=== PATIENT | female | born 1980 | race Caucasian/White ===

== ENCOUNTER 2017-02-26 08:43 | Observation (INO) ==
[2017-02-26] MEDS ORDERED: 0.9 % Sodium Chloride 1,000 ML IVC ONE ×2 (09:04→09:59)
[2017-02-26] MEDS ORDERED: Ondansetron 4 MG/2 ML VIAL IVP ONE (09:05)
[2017-02-26] MEDS ORDERED: Pantoprazole 40 MG VIAL IVP ONE (09:05)
[2017-02-26] MEDS ORDERED: *HR* Promethazine 25 MG/ML VIAL IVP ONE (09:09)
--- NOTE | 2017-02-26 09:09 | Emergency Department Note ---
Disposition Clinical Impression: Acute pancreatitis Qualifiers: Pancreatitis type: unspecified pancreatitis type Acute pancreatitis complication: unspecified Qualified Code(s): K85.90 - Acute pancreatitis without necrosis or infection, unspecified UTI (urinary tract infection) Qualifiers: Urinary tract infection type: site unspecified Hematuria presence: with hematuria Qualified Code(s): N39.0 - Urinary tract infection, site not specified Disposition: Admitted As Inpatient Condition: Fair Time of Disposition: 11:59 Abdominal Pain HPI - General Chief Complaint: ED Abdominal Pain Stated Complaint: pancreatitis Time Seen by Provider: 02/26/17 08:56 Source: patient Nursing Notes Reviewed: Yes Vital Signs Reviewed: Yes - History of Present Illness HPI Narrative: The patient is a 37-year-old female with the past medical history of pancreatitis who presents with worsening of her acute pancreatitis. The patient states that she was diagnosed with Acute pancreatitis and UTI yesterday at [facility] ER in [place], [place] and was sent home with nausea medications, antibiotics, and Vicodin. The patient states that her epigastric pain worsened last night and she couldn't sleep. She describes the epigastric pain as constant and sharp that radiates straight to her back and around her LUQ that is worse with moving around. She states that nothing helps the pain, including the Vicodin. She admits associated nausea and vomiting but denies fevers and chills. She denies any headache, vision changes, chest pain, shortness of breath, difficulty breathing, blood in her stool, difficulty urinating, blood in her urine, numbness and tingling, and any focal neurological deficits. Pain Scale: 10 - Related Data Home Medications Medication Instructions Recorded Confirmed Insulin ASPART [Novolog Flexpen] 2 - 10 unit SQ TIDWM 08/06/15 02/26/17 Diclofenac Sodium [Voltaren] 75 mg PO BID 02/26/17 02/26/17 Ibuprofen [Motrin] 800 mg PO Q8HR PRN 02/26/17 02/26/17 Insulin Degludec [Tresiba 30 unit SQ DAILY 02/26/17 02/26/17 Flextouch U-100] Levothyroxine [Synthroid] 175 mcg PO 0630 02/26/17 02/26/17 Norethindrone [Arlin] 0.35 mg PO DAILY 02/26/17 02/26/17 Allergies Allergy/AdvReac Type Severity Reaction Status Date / Time acetaminophen Allergy Hives Verified 02/26/17 08:45 [From Tylenol-Codeine] Amoxicillin Allergy Hives Verified 02/26/17 08:45 codeine Allergy Hives Verified 02/26/17 08:45 [From Tylenol-Codeine] Penicillins [PCN] Allergy Hives Verified 02/26/17 08:45 tramadol [From Ultram] Allergy Rash Verified 02/26/17 08:45 Review of Systems: Constitutional: No fever Vision: No blurred vision ENT: No rhinorrhea Respiratory: No cough or SOB. Cardio: No chest pain or palpitations. Allergic: No allergies : No blood in urine GI: Admits epigastric pain that radiates to the back and across her LUQ. Admits nausea and vomiting. Denies any hemaemesis. No blood in stool Hematologic: No bruising Dermatologic: No skin rash Musculoskeletal: No pain in the extremities Neuro: No numbness of the extremities All systems ED: reviewed and negative except as stated. 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 NOSE: The nose is normal in appearance without rhinorrhea LUNGS: CTAB, no wheezing CV: RRR without murmur, rub, gallop ABD: Epigastric tender to palpation. Non-distended, soft, without rigidity, rebound or guarding BACK: Visual inspection of the back with no ecchymosis, bruises, or bleeding. There is no pain with palpation musculature low back. No midline cervical/ thoracic/lumbar sacral tenderness to palpation NEURO: Strength 5/5 for flexion and extension bilateral lower extremities, sensation grossly intact bilateral lower extremities. No evidence of urinary incontinence SKIN: Normal for age and race; warm and dry; no apparent lesions, bruising or rashes - General Limitations: no limitations General appearance: alert, in no apparent distress Course Vital Signs Temperature 97.6 F 02/26/17 08:45 Pulse Rate 76 02/26/17 08:45 Respiratory Rate 16 02/26/17 08:45 Blood Pressure 149/95 02/26/17 08:45 O2 Sat by Pulse Oximetry 100 02/26/17 08:45 Temperature 97.6 F 02/26/17 08:45 Pulse Rate 66 02/26/17 11:34 Respiratory Rate 20 02/26/17 12:18 Blood Pressure 155/93 02/26/17 12:18 O2 Sat by Pulse Oximetry 99 02/26/17 11:34 Oxygen Delivery Oxygen Delivery Room Air Abdominal Pain - MDM Narrative Medical decision making narrative: Vitals are reviewed and normal. Patient is afebrile and appears in acute distress. Will repeats labs and CT abd/pelvic to evaluate her worsening pancreatitits. Will give Phenergan for nausea and fluids. 10:00- Lipase is elevated at 427, unchanged from yesterday's values. Patient is still uncomfortable. Will give fluids and Dilaudid for pain control. CT still pending. Will plan to admit patient for pancreatitis. 11:55- CT shows findings of acute pancreatitis. Spoke with Dr. Antony, the admitting hospitalist, and discussed the patient. He agrees to accept the patient. Patient will be admitted for observation for acute pancreatitis. - Lab Data Lab results reviewed: Yes I reviewed the patient's lab results. Result diagrams: 02/26/17 09:09 02/26/17 09:09 Lab Results 02/26/17 02/26/17 02/26/17 Range/Units 09:09 09:09 10:20 WBC 10.4 (4.3-11.1) K/mcL RBC 4.72 (3.82-4.97) M/mcL Hgb 14.8 (11.5-15.4) g/dL Hct 44.0 (35.3-44.9) % MCV 93.2 (83.0-100.0) fL MCH 31.4 (28.0-33.3) pg MCHC 33.6 (31.6-35.5) g/dL RDW 13.8 (11.5-14.5) % Plt Count 261 (140-400) K/mcL MPV 10.4 (9.4-12.4) fL Immature Gran % 0.3 (0-4) % Seg Neutrophils % 73.2 % Lymphocytes % 18.2 % Monocytes % 6.5 % Eosinophils % 1.5 % Basophils % 0.3 % Neutrophils # 7.6 (1.6-8.9) K/mcL Lymphocytes # 1.9 (0.6-4.6) K/mcL Monocytes # 0.7 (0.0-1.3) K/mcL Eosinophils # 0.2 (0.0-0.6) K/mcL Basophils # 0.0 (0.0-0.2) K/mcL Sodium 138 (136-145) mEq/L Potassium 3.5 (3.5-4.5) mEq/L Chloride 99 (98-109) mEq/L Carbon Dioxide 30 H (19-29) mEq/L BUN 9 (7-20) mg/dL Creatinine 0.83 (0.57-1.11) mg/dL Est GFR ( Amer) > 60 (> 60) Est GFR (Non-Af Amer) > 60 (> 60) BUN/Creatinine Ratio 11 (6-26) Glucose 80 (70-99) mg/dL Calculated Osmolality 284 (280-300) Calcium 9.4 (8.6-10.8) mg/dL Total Bilirubin 0.6 (0.2-1.2) mg/dL AST 18 (5-34) Units/L ALT 11 (0-55) Units/L Alkaline Phosphatase 112 (38-126) Units/L Serum Total Protein 6.8 (6.0-8.3) g/dL Albumin 3.7 (3.5-5.0) g/dL Globulin 3.1 (2.4-3.5) g/dL Albumin/Globulin Ratio 1.2 (1.1-2.2) Lipase 427 H (8-78) Units/L Urine Color (Yellow) Urine Clarity (Clear) Urine pH (5.0-8.0) pH Units Ur Specific Randolph (1.010-1.025) Urine Protein (Neg-Trace) mg/dL Urine Glucose (UA) (Normal) mg/dL Urine Ketones (Negative) mg/dL Urine Blood (Negative) Urine Nitrite (Negative) Urine Bilirubin (Negative) Urine Urobilinogen (Normal) mg/dL Ur Leukocyte Esterase (Negative) Urine Microscopic RBC (0-3) per hpf Urine Microscopic WBC (0-3) per hpf Ur Squamous Epith Cells (None-Few) per lpf Urine Bacteria (None-Few) per hpf Hyaline Casts (None-Few) per lpf Ur Culture Indicated? (NO) Urine Test Negative (Negative) 02/26/17 Range/Units 10:20 WBC (4.3-11.1) K/mcL RBC (3.82-4.97) M/mcL Hgb (11.5-15.4) g/dL Hct (35.3-44.9) % MCV (83.0-100.0) fL MCH (28.0-33.3) pg MCHC (31.6-35.5) g/dL RDW (11.5-14.5) % Plt Count (140-400) K/mcL MPV (9.4-12.4) fL Immature Gran % (0-4) % Seg Neutrophils % % Lymphocytes % % Monocytes % % Eosinophils % % Basophils % % Neutrophils # (1.6-8.9) K/mcL Lymphocytes # (0.6-4.6) K/mcL Monocytes # (0.0-1.3) K/mcL Eosinophils # (0.0-0.6) K/mcL Basophils # (0.0-0.2) K/mcL Sodium (136-145) mEq/L Potassium (3.5-4.5) mEq/L Chloride (98-109) mEq/L Carbon Dioxide (19-29) mEq/L BUN (7-20) mg/dL Creatinine (0.57-1.11) mg/dL Est GFR ( Amer) (> 60) Est GFR (Non-Af Amer) (> 60) BUN/Creatinine Ratio (6-26) Glucose (70-99) mg/dL Calculated Osmolality (280-300) Calcium (8.6-10.8) mg/dL Total Bilirubin (0.2-1.2) mg/dL AST (5-34) Units/L ALT (0-55) Units/L Alkaline Phosphatase (38-126) Units/L Serum Total Protein (6.0-8.3) g/dL Albumin (3.5-5.0) g/dL Globulin (2.4-3.5) g/dL Albumin/Globulin Ratio (1.1-2.2) Lipase (8-78) Units/L Urine Color Dark Yellow (Yellow) Urine Clarity Cloudy A (Clear) Urine pH 7.5 (5.0-8.0) pH Units Ur Specific Randolph > 1.030 H (1.010-1.025) Urine Protein 100 H (Neg-Trace) mg/dL Urine Glucose (UA) Normal (Normal) mg/dL Urine Ketones 40 H (Negative) mg/dL Urine Blood Large H (Negative) Urine Nitrite Negative (Negative) Urine Bilirubin Negative (Negative) Urine Urobilinogen Normal (Normal) mg/dL Ur Leukocyte Esterase Negative (Negative) Urine Microscopic RBC 5-15 H (0-3) per hpf Urine Microscopic WBC 5-15 H (0-3) per hpf Ur Squamous Epith Cells Many H (None-Few) per lpf Urine Bacteria Moderate H (None-Few) per hpf Hyaline Casts None Seen (None-Few) per lpf Ur Culture Indicated? NO (NO) Urine Test (Negative) - Radiology Data Radiology results reviewed: Yes I reviewed the patient's radiology results. Abdomen/Pelvis CT 02/26/17 09:07 IMPRESSION: Findings compatible with acute pancreatitis. Contrast from the recent study performed 1 day prior an outside institution noted within the renal collecting system bladder and gallbladder. D/ / Chauncey Lacey MD / Chauncey Lacey MD Interpreting Provider: Chauncey Lacey MD Attestation Statement - Attestation Attestation: Patient was seen with resident physician. I reviewed the history, physical, assessment and plan, and agree with the findings. I also personally evaluated this patient and had [id number] time with this patient. 37-year-old female presents emergency department with chief complaint of pancreatitis. Patient states she was seen at an outside hospital yesterday. Was diagnosed with pancreatitis. Was given Dilaudid which helped her pain. Os discharged to home. She comes in today with nausea vomiting and abdominal pain. Pain is sharp to the midepigastric and left upper quadrant. Denies diarrhea or other complaints at this time. On exam vital signs are stable. ENT is unremarkable. Heart and lungs normal. Abdomen is tender in the midepigastric and left upper quadrant but there is no guarding or rigidity. Extremities unremarkable. Neurologically the patient is intact. ED course we will check again for pancreatitis including a CT scan is were unlikely we will get that test result in a timely manner. Additionally patient is very demonstrative about the level of her discomfort. Lipase was markedly elevated. Additionally CT scan today demonstrates finding consistent with pancreatitis. Patient will be made nothing by mouth. We will also treat her nausea and administer IV hydration and pain medication. With positive findings will admit the patient in the hospital for IV hydration and bowel rest. Hospitalist was notified and agreed to accept patient for admission. I agree with the resident physician assessment and plan.
[2017-02-26 09:19] LABS: Basophils % 0.3 %; Eosinophils # 0.2 K/mcL (0.0-0.6); Eosinophils % 1.5 %; Hemoglobin 14.8 g/dL (11.5-15.4); Immature Granulocytes % 0.3 % (0-4); Lymphocytes # 1.9 K/mcL (0.6-4.6); Lymphocytes % 18.2 %; Mean Corpuscular HGB Conc 33.6 g/dL (31.6-35.5); Mean Corpuscular Hemoglobin 31.4 pg (28.0-33.3); Mean Corpuscular Volume 93.2 fL (83.0-100.0); Mean Platelet Volume 10.4 fL (9.4-12.4); Monocytes # 0.7 K/mcL (0.0-1.3); Monocytes % 6.5 %; Neutrophils # 7.6 K/mcL (1.6-8.9); Platelet Count 261 K/mcL (140-400); Red Blood Count 4.72 M/mcL (3.82-4.97); Red Cell Distribution Width 13.8 % (11.5-14.5); Segmented Neutrophils % 73.2 %
[2017-02-26 09:34] LABS: Alanine Aminotransferase 11 Units/L (0-55); Albumin 3.7 g/dL (3.5-5.0); Albumin/Globulin Ratio 1.2 (1.1-2.2); Alkaline Phosphatase 112 Units/L (38-126); Aspartate Amino Transferase 18 Units/L (5-34); BUN/Creatinine Ratio 11 (6-26); Bilirubin,Total 0.6 mg/dL (0.2-1.2); Blood Urea Nitrogen 9 mg/dL (7-20); Calcium 9.4 mg/dL (8.6-10.8); Carbon Dioxide 30 mEq/L (19-29); Chloride 99 mEq/L (98-109); Globulin 3.1 g/dL (2.4-3.5); Glucose 80 mg/dL (70-99); Lipase 427 Units/L (8-78); Osmolality,Calculated 284 (280-300); Potassium 3.5 mEq/L (3.5-4.5); Sodium 138 mEq/L (136-145); Total Protein 6.8 g/dL (6.0-8.3); eGFR For African Americans > 60 (> 60); eGFR For Non-African Americans > 60 (> 60)
[2017-02-26] MEDS ORDERED: *HR* HYDROmorphone (PF) 1 MG/ML SYRINGE IVP ONE (09:39)
[2017-02-26 10:30] LABS: Bilirubin,Urine Negative (Negative); Blood,Urine Large (Negative); Clarity,Urine Cloudy (Clear); Color,Urine Dark Yellow (Yellow); Glucose,Urine (UA) Normal (Normal); Ketones,Urine 40 mg/dL (Negative); Leukocyte Esterase,Urine Negative (Negative); Nitrite,Urine Negative (Negative); PH,Urine 7.5 pH Units (5.0-8.0); Protein,Urine 100 mg/dL (Neg-Trace); Specific Gravity,Urine > 1.030 (1.010-1.025); Urobilinogen,Urine Normal (Normal)
[2017-02-26 10:32] LABS: Bacteria,Urine Moderate per hpf (None-Few); Hyaline Casts,Urine None Seen per lpf (None-Few); Squamous Epithelial Cell,Urine Many per lpf (None-Few)
[2017-02-26] MEDS ORDERED: D5% in Water 1,000 ML IVC PRN (12:33)
[2017-02-26] MEDS ORDERED: Ondansetron 4 MG/2 ML VIAL IVP PRN (12:33)
[2017-02-26] MEDS ORDERED: *HR* Dextrose 50 % in Water (Syg) 50 ML SYRINGE IVP PRN (12:33)
[2017-02-26] MEDS ORDERED: Dextrose Gel 15 GM PO PRN ×2 (12:33)
[2017-02-26] MEDS ORDERED: *HR* Promethazine 25 MG/ML VIAL IVP PRN (12:33)
[2017-02-26] MEDS ORDERED: Naloxone 0.4 MG/ML INJ IVP PRN (12:33)
[2017-02-26] MEDS ORDERED: *HR* OxyCODONE/APAP 5/325 TABLET PO PRN (12:58)
[2017-02-26] MEDS ORDERED: *HR* Morphine 2 MG/ML SYRINGE IVP PRN (12:59)
--- NOTE | 2017-02-26 13:04 | Internal Med History&Physical ---
<Mehdi Jennings J - Last Filed: 02/26/17 13:00> Date of Encounter: 02/26/17 Time of Encounter: 13:00 Assessment and Plan (1) Acute pancreatitis Current visit: Yes Status: Acute Continues to have abdominal pain/tenderness, and nausea, afebrile, hemodynamically stable. Nausea improved with zofran and phenergan. Received 2L fluid bolus, start LR at 150ml/hr manage pain with oxycodone 5/325 Q4 prn for moderate pain and morphine Q4 prn for severe pain Continue with Phenergan and Zofran for nausea/vomiting; Zofran as first agent, Phenergan if nausea/vomiting persists NPO Prontonix 40mg IVP QD CBC, CMP and Lipase in the morning Qualifiers: Pancreatitis type: unspecified pancreatitis type Acute pancreatitis complication: unspecified Qualified Code(s): K85.90 - Acute pancreatitis without necrosis or infection, unspecified (2) Nausea & vomiting Current visit: Yes Status: Acute d/t acute pancreatitis, see plan above Qualifiers: Vomiting type: unspecified Vomiting Intractability: intractable Qualified Code(s): R11.2 - Nausea with vomiting, unspecified (3) Hypothyroidism Current visit: Yes Status: Chronic h/o resume synthroid. Qualifiers: Hypothyroidism type: acquired Qualified Code(s): E03.9 - Hypothyroidism, unspecified (4) UTI (urinary tract infection) Current visit: Yes Status: Ruled-out UA does not appear to be suspicious for UTI. Large amount of blood in the urine d/t the fact that she is on her menstrual cycle. No antibiotic therapy at this time Qualifiers: Urinary tract infection type: site unspecified Hematuria presence: with hematuria Qualified Code(s): N39.0 - Urinary tract infection, site not specified; R31.9 - Hematuria, unspecified; R31.9 - Hematuria, unspecified (5) Type 1 diabetes Current visit: Yes Status: Acute History of type 1 diabetes mellitus. Reports excellent glucose control with Tresiba. Continue Tarceva at home dose. Add LSSIC and Q6HR accuchecks. NPO diet. Qualifiers: Diabetes mellitus complication status: without complication Qualified Code( s): E10.9 - Type 1 diabetes mellitus without complications (6) DVT prophylaxis Current visit: Yes Status: Acute LOVENOX 40MG SC DAILY Internal Medicine - H&P: HPI Chief complaint: Acute pancreatitis Admitted From: Home Plans for Post Hospital Care: Home History of present illness: Ms. Smith is a 37 year old female with a PMH of type 1 diabetes, hypothyroidism and anxiety. She presents to [facility] today with two-day history of nausea, vomiting, abdominal pain. She reports that she was diagnosed yesterday at [facility] with acute pancreatitis and UTI. She was sent home with Macrobid, antiemetics and Vicodin. She reports that last night she began experiencing continuous sharp intense pain radiating from left upper quadrant to mid back. Additionally she reports pain in the left lower quadrant. He states that the pain is unrelieved with the Vicodin, she also reports vomiting twice. Denies any fever, chills, dysuria, urinary frequency, diarrhea. Only admitting to nausea vomiting and abdominal pain. She does have an elevated lipase of 427. Urinalysis only showing large amount of blood but she is on her menstrual cycle. Past Med Surg Social Fam HX - Past Medical History Medical history: diabetes, thyroid disease, other Psychiatric history: anxiety - Past Surgical History Surgical History: - Social History Smoking Status: Current every day smoker Smokeless Tobacco Status: No Alcohol use: none Drug use: none - Family History Mother Adopted: No Living Status: Still Living Hx Family Cardiac Disorders: Yes Hx Family Respiratory Disorders: No Hx Family Cancer: Yes Hx Family GI Disorders: No Hx Family Endocrine Disorder: Yes Hx Family Neuromuscular Disorders: No Hx Family Neurologic Disorders: No Hx Family HEENT Disorders: No Hx Family Autoimmune Disorders: No Internal Medicine - H&P: Meds Insulin ASPART [Novolog Flexpen] 2 - 10 unit SQ TIDWM 08/06/15 [History] Diclofenac Sodium [Voltaren] 75 mg PO BID 02/26/17 [History] Ibuprofen [Motrin] 800 mg PO Q8HR PRN 02/26/17 [History] Insulin Degludec [Tresiba Flextouch U-100] 30 unit SQ DAILY 02/26/17 [History] Levothyroxine [Synthroid] 175 mcg PO 0630 02/26/17 [History] Norethindrone [Arlin] 0.35 mg PO DAILY 02/26/17 [History] 3 Allergy/AdvReac Type Severity Reaction Status Date / Time acetaminophen Allergy Hives Verified 02/26/17 08:45 [From Tylenol-Codeine] Amoxicillin Allergy Hives Verified 02/26/17 08:45 codeine Allergy Hives Verified 02/26/17 08:45 [From Tylenol-Codeine] Penicillins [PCN] Allergy Hives Verified 02/26/17 08:45 tramadol [From Ultram] Allergy Rash Verified 02/26/17 08:45 All Systems PM: A 10-system review of systems was performed and is negative for pertinent findings except as documented above in the HPI. - Constitutional Constitutional: no chills, no fatigue, no fever(s), no falls, no night sweats, no weakness, no weight loss - Cardiovascular Cardiovascular ROS IM: no chest pain, no diaphoresis, no dyspnea, no lightheadedness, no palpitations, no syncope - Respiratory Respiratory: no cough, no dyspnea, no wheezing, no excessive phlegm production - Gastrointestinal Gastrointestinal: as per HPI, abdominal pain, nausea, vomiting, no diarrhea, no early satiety, no hematemesis, no hematochezia - Genitourinary Genitourinary: as per HPI, no change in urinary stream, no dysuria, no flank pain, no hematuria - Musculoskeletal Musculoskeletal ROS IM: as per HPI, back pain, no numbness, no tingling - Integumentary Integumentary IM: no rash, no unusual bruising - Neurological Neurological ROS: no confusion, no convulsions, no focal weakness, no numbness, no tingling, no tremor(s) - Hematologic/Lymphatic Hematologic/Lymphatic: no easy bruising - Constitutional Vitals: Temp Pulse Resp BP Pulse Ox 97.6 F 68 16 185/96 98 02/26/17 12:40 02/26/17 12:40 02/26/17 12:40 02/26/17 12:40 02/26/17 12:40 General appearance: Present: cooperative, A&O X 3, no acute distress, answers questions appropriately - Head Head exam: Present: atraumatic, normocephalic - Eye Eye exam: Present: PERRL, conjuntiva pink, sclera anicteric Pupils: Present: PERRL - Neck Neck exam general surgery: Present: supple, trachea midline. Absent: lymphadenopathy - Respiratory Respiratory exam: Present: CTAB. Absent: accessory muscle use, rales, rhonchi, wheezes - Cardiovascular Cardiovascular exam: Present: RRR, +S1, +S2. Absent: diastolic murmur, gallop, rubs, systolic murmur - GI/Abdominal GI/Abdominal exam: Present: normal bowel sounds, soft, tenderness (Epigastric and LLQ ). Absent: diminished bowel sounds, distended, firm, guarding, pulsatile mass, rebound - Extremities Exam Extremities exam: Present: warm, radial pulses palpable and symmetrical. Absent : calf tenderness, cyanotic, pedal edema - Neurological Exam Neurological exam: Present: alert, CN II-XII intact, oriented X3, no focal deficits. Absent: pronater drift, facial droop, speech deficit - Skin Skin exam: Present: dry, intact Internal Med - H&P Results - Labs CBC & Chem 7: 02/26/17 09:09 02/26/17 09:09 - Diagnostic Studies CT scan - abdomen Status: image reviewed by me Additional comments: ACUTE PANCREATITIS <Osiel Antony - Last Filed: 02/26/17 16:43> Date of Encounter: 02/26/17 Internal Medicine - H&P: HPI History of present illness: Ms. Smith is a 37 year old female All Systems PM: A 10-system review of systems was performed and is negative for pertinent findings except as documented above in the HPI. - Constitutional Vitals: Temp Pulse Resp BP Pulse Ox 97.6 F 68 16 185/96 98 02/26/17 12:40 02/26/17 12:40 02/26/17 12:40 02/26/17 12:40 02/26/17 12:40 Internal Med - H&P Results - Labs CBC & Chem 7: 02/26/17 09:09 02/26/17 09:09 - Attending Attestation I independently obtained history and examined this patient and my medical decision-making was reviewed with the nurse practitioner. I agree with the documented findings, disposition and treatment plan as described. My findings are summarized below: Patient reports severe epigastric abdominal pain, she appears to be in distress lying on her right side in position and cringing in pain. Pupils are equal round reactive to light. Heart is regular S1-S2. Abdomen is tender to palpation. Plan: For pancreatitis: Nothing by mouth, IV fluids, pain and nausea control. I will increase morphine to 2 mg every 3 hours Check lipid profile and gallbladder ultrasound to rule out gallstone pancreatitis. Patient does admit to drinking 2 bottles of Beka[employer] hard lemonade every other day. She has had an episode of pancreatitis 1 year ago. I suspect her moderate to heavy alcohol use to be related to this recurrent bouts of pancreatitis. I advised complete alcohol cessation as well as smoking cessation. Type 1 diabetes and insulin: Fingersticks every 6 hours and insulin sliding scale. If the patient remains nothing by mouth I recommend adding dextrose as her starvation ketosis. She is at high risk for morbidity, mortality and complications due to acute pancreatitis and requiring treatment with IV control substances. Osiel Antony MD
[2017-02-26] MEDS: Ringers Solution, Lactated 1,000 ML IVC SCH ×2 (14:02→21:09)
[2017-02-26] MEDS: Insulin LISPRO 300 UNITS/3 ML VIAL SQ SCH (16:02)
[2017-02-26] MEDS: Nicotine 21 MG PATCH.TD24 TD SCH ×2 (17:06→17:08)
[2017-02-26] MEDS: *HR* Morphine 2 MG/ML SYRINGE IVP PRN ×2 (17:06→21:08)
[2017-02-26] MEDS: *HR* OxyCODONE/APAP 5/325 TABLET PO PRN (19:41)
[2017-02-26] MEDS: Diclofenac Sodium 75 MG TABLET PO SCH (19:41)
[2017-02-26 20:04] LABS: Chol/HDL Ratio 2.2 (0-4.9); Cholesterol 172 mg/dL (< 200); HDL Cholesterol 78 mg/dL (40-59); LDL Cholesterol,Calculated 66 mg/dL (0-99); Triglycerides 141 mg/dL (< 150)
[2017-02-26] MEDS ORDERED: Insulin LISPRO 300 UNITS/3 ML VIAL SQ SCH (21:00)
[2017-02-27] MEDS: *HR* Morphine 2 MG/ML SYRINGE IVP PRN (03:47)
[2017-02-27] MEDS: Ringers Solution, Lactated 1,000 ML IVC SCH (03:47)
[2017-02-27 04:40] LABS: Basophils % 0.3 %; Eosinophils # 0.2 K/mcL (0.0-0.6); Eosinophils % 2.2 %; Immature Granulocytes % 0.4 % (0-4); Lymphocytes # 2.5 K/mcL (0.6-4.6); Lymphocytes % 26.6 %; Mean Corpuscular HGB Conc 33.4 g/dL (31.6-35.5); Mean Corpuscular Hemoglobin 32.2 pg (28.0-33.3); Mean Corpuscular Volume 96.2 fL (83.0-100.0); Mean Platelet Volume 10.8 fL (9.4-12.4); Monocytes # 0.6 K/mcL (0.0-1.3); Monocytes % 6.8 %; Neutrophils # 5.9 K/mcL (1.6-8.9); Platelet Count 195 K/mcL (140-400); Red Blood Count 3.95 M/mcL (3.82-4.97); Red Cell Distribution Width 13.9 % (11.5-14.5); Segmented Neutrophils % 63.7 %
[2017-02-27 04:49] LABS: Hemoglobin 12.7 g/dL (11.5-15.4)
[2017-02-27 05:02] LABS: Alanine Aminotransferase 9 Units/L (0-55); Albumin/Globulin Ratio 1.2 (1.1-2.2); Alkaline Phosphatase 81 Units/L (38-126); Aspartate Amino Transferase 13 Units/L (5-34); BUN/Creatinine Ratio 13 (6-26); Bilirubin,Total 0.5 mg/dL (0.2-1.2); Blood Urea Nitrogen 10 mg/dL (7-20); Carbon Dioxide 25 mEq/L (19-29); Chloride 107 mEq/L (98-109); Globulin 2.3 g/dL (2.4-3.5); Glucose 101 mg/dL (70-99); Lipase 270 Units/L (8-78); Osmolality,Calculated 287 (280-300); Potassium 3.8 mEq/L (3.5-4.5); Sodium 139 mEq/L (136-145); eGFR For African Americans > 60 (> 60); eGFR For Non-African Americans > 60 (> 60)
[2017-02-27 05:03] LABS: Albumin 2.8 g/dL (3.5-5.0); Calcium 7.9 mg/dL (8.6-10.8); Total Protein 5.1 g/dL (6.0-8.3)
[2017-02-27] MEDS: *HR* OxyCODONE/APAP 5/325 TABLET PO PRN ×2 (05:55→12:40)
[2017-02-27] MEDS: Nicotine 21 MG PATCH.TD24 TD SCH (07:42)
[2017-02-27] MEDS: Diclofenac Sodium 75 MG TABLET PO SCH (08:20)
[2017-02-27] MEDS: Insulin LISPRO 300 UNITS/3 ML VIAL SQ SCH ×2 (08:23→12:40)
[2017-02-27] MEDS ORDERED: INSULIN DEGLUDEC 30 UNIT SQ SCH (09:00)
[2017-02-27] MEDS ORDERED: Insulin DETEMIR 100 UNIT/ML X5UNITS SQ SCH (09:00)
[2017-02-27] MEDS ORDERED: Pantoprazole 40 MG VIAL IVP SCH (09:00)
[2017-02-27] MEDS ORDERED: NORETHINDRONE 0.35 MG PO SCH (09:00)
--- NOTE | 2017-02-27 10:49 | Internal Med Progress Note ---
Date of Encounter: 02/27/17 Time of Encounter: 10:20 - Assessment and plan (1) Tobacco abuse Current Visit: Yes Status: Acute (2) Acute pancreatitis Current Visit: Yes Status: Acute Qualifiers: Pancreatitis type: unspecified pancreatitis type Acute pancreatitis complication: unspecified Qualified Code(s): K85.90 - Acute pancreatitis without necrosis or infection, unspecified (3) Hypothyroidism Current Visit: Yes Status: Chronic Qualifiers: Hypothyroidism type: acquired Qualified Code(s): E03.9 - Hypothyroidism, unspecified (4) Diabetes mellitus type 1 Current Visit: Yes Status: Chronic Qualifiers: Diabetes mellitus complication status: with ketoacidosis Diabetes mellitus complication detail: without coma Qualified Code(s): E10.10 - Type 1 diabetes mellitus with ketoacidosis without coma - Subjective Interval history: Abdominal pain and nausea and emesis improved; no further vomitings today; reports feeling hungry. No fever/chills, chest pain, anxiety. - Constitutional Vitals: Temp Pulse Resp BP Pulse Ox 97.8 F 75 16 145/82 96 02/27/17 06:28 02/27/17 06:28 02/27/17 06:28 02/27/17 06:28 02/27/17 06:28 General appearance: Present: cooperative, A&O X 3, answers questions appropriately - Respiratory Respiratory exam: Present: CTAB. Absent: accessory muscle use, rales, rhonchi, wheezes - Cardiovascular Cardiovascular exam: Present: RRR, +S1, +S2. Absent: diastolic murmur, gallop, rubs, systolic murmur - GI/Abdominal GI/Abdominal exam: Present: normal bowel sounds, soft, no peritoneal signs. Absent: distended, tenderness - Extremities Exam Extremities exam: Present: full ROM, warm, radial pulses palpable and symmetrical. Absent: calf tenderness, cyanotic, pedal edema Internal Medicine: Result - Labs CBC & Chem 7: 02/27/17 04:23 02/27/17 04:23 Labs: Short CBC 02/27/17 Range/Units 04:23 WBC 9.2 (4.3-11.1) K/mcL Hgb 12.7 D (11.5-15.4) g/dL Hct 38.0 (35.3-44.9) % Plt Count 195 (140-400) K/mcL Neutrophils # 5.9 (1.6-8.9) K/mcL BMP 02/27/17 04:23 Sodium 139 Potassium 3.8 Chloride 107 Carbon Dioxide 25 BUN 10 Creatinine 0.78 Glucose 101 H Calcium 7.9 L D Liver Function 02/27/17 Range/Units 04:23 Total Bilirubin 0.5 (0.2-1.2) mg/dL AST 13 (5-34) Units/L ALT 9 (0-55) Units/L Alkaline Phosphatase 81 (38-126) Units/L Albumin 2.8 L D (3.5-5.0) g/dL - Impressions Impressions Gallbladder Ultrasound 02/27/17 09:00 IMPRESSION: Unremarkable right upper quadrant ultrasound. Negative evaluation for acute cholecystitis by sonography. There are no abnormal fluid collections on the images provided, given the history of acute pancreatitis. D/ / Yuan Diallo / Yuan Diallo Interpreting Provider: Yuan Diallo Consult Discharge Plan - Plan Referrals: Emily Cano, [employer] [Primary Care Provider] -
[2017-02-27] MEDS ORDERED: 0.9 % Sodium Chloride 1,000 ML IVC SCH (11:00)
[2017-02-27 14:23] VITALS: BP 142/79
--- NOTE | 2017-02-27 14:34 | Discharge Summary ---
Date of Encounter: 02/27/17 Time of Encounter: 10:00 - Discharge Diagnosis (1) Tobacco abuse Priority: Secondary Status: Chronic (2) Acute pancreatitis Priority: Primary Status: Acute Qualifiers: Pancreatitis type: unspecified pancreatitis type Acute pancreatitis complication: unspecified Qualified Code(s): K85.90 - Acute pancreatitis without necrosis or infection, unspecified (3) Hypothyroidism Priority: Secondary Status: Chronic Qualifiers: Hypothyroidism type: unspecified Qualified Code(s): E03.9 - Hypothyroidism , unspecified (4) Diabetes mellitus Priority: Secondary Status: Chronic Qualifiers: Diabetes mellitus type: type 1 Diabetes mellitus complication status: with unspecified complications Qualified Code(s): E10.8 - Type 1 diabetes mellitus with unspecified complications - Discharge Medications Home Medications: Insulin ASPART [Novolog Flexpen] 2 - 10 unit SQ TIDWM 08/06/15 [History] Diclofenac Sodium [Voltaren] 75 mg PO BID 02/26/17 [History] Ibuprofen [Motrin] 800 mg PO Q8HR PRN 02/26/17 [History] Insulin Degludec [Tresiba Flextouch U-100] 30 unit SQ DAILY 02/26/17 [History] Levothyroxine [Synthroid] 175 mcg PO 0630 02/26/17 [History] Norethindrone [Arlin] 0.35 mg PO DAILY 02/26/17 [History] Allergies/Adverse Reactions: 3 Allergy/AdvReac Type Severity Reaction Status Date / Time acetaminophen Allergy Hives Verified 02/26/17 08:45 [From Tylenol-Codeine] Amoxicillin Allergy Hives Verified 02/26/17 08:45 codeine Allergy Hives Verified 02/26/17 08:45 [From Tylenol-Codeine] Penicillins [PCN] Allergy Hives Verified 02/26/17 08:45 tramadol [From Ultram] Allergy Rash Verified 02/26/17 08:45 Procedures/tests Complete & Pending: Procedures Performed prior 72 hours Category Date Time Status US gall bladder [US] Routine Exams 02/27/17 09:00 Completed Date of admission: 02/26/17 12:01 Primary care physician: Emily Cano CNP Discharging clinician: Radha Zaidi Anticipated date of discharge: 02/27/17 - Patient Status Disposition: Home, Self-Care Condition: Good Functional capacity at discharge: independent ambulation Overall status at discharge: patient is progressing back to baseline - Discharge Instructions Instructions: Pancreatitis (DC) Follow Up With: Emily Cano, [employer] [Primary Care Provider] - 03/07/17 10:00 am Additional Instructions: F/up with PCP in 1-2 weeks - Diet and Activity Activity: resume usual activities as tolerated Diet: advance to your usual diet (as tolerated), diabetic diet, low fat, low cholesterol Hospital course: Ms. Simth is a 37 year old female with tobacco abuse, DM, was admitted with abdominal pain, nausea and vomiting and noted to have elevated lipase and diagnosed with acute pancreatitis. Patient was started on bowel rest, aggressive IV hydration, supportive care with pain control and PRN antiemetics. She felt much better this morning and was able to tolerate oral diet and was eager to be discharged home. SHe was advised to remain on low fat diet and advance as tolerated, with PCP f/up. - Time Spent with Patient Total time spent providing and/or coordinating discharge services: Greater than 30 minutes (40 min) - Constitutional Vitals: Temp Pulse Resp BP Pulse Ox 98.0 F 79 16 142/79 97 02/27/17 14:21 02/27/17 14:21 02/27/17 14:21 02/27/17 14:21 02/27/17 14:21 General appearance: Present: cooperative, A&O X 3, answers questions appropriately - GI/Abdominal GI/Abdominal exam: Present: normal bowel sounds, soft, no peritoneal signs. Absent: distended, tenderness
== END 2017-02-27 15:18 | disposition home or self-care (01) ==
LOC: 3ANU 08:43 → EMEROO 08:43 → 3ANU 12:24
PROVIDERS: ADMIT Internal Medicine; ATTEND Internal Medicine

== ENCOUNTER 2019-08-26 03:14 | Inpatient (IN) ==
[2019-08-26] MEDS ORDERED: 0.9 % Sodium Chloride 1,000 ML IVC ONE (03:32)
[2019-08-26 03:42] LABS: Basophils % 0.1 %; Eosinophils % 0.2 %; Hematocrit 42.5 % (35.3-44.9); Hemoglobin 14.8 g/dL (11.5-15.4); Immature Granulocytes % 0.4 % (0-4); Lymphocytes # 1.6 K/mcL (0.6-4.6); Lymphocytes % 12.1 %; Mean Corpuscular HGB Conc 34.8 g/dL (31.6-35.5); Mean Corpuscular Hemoglobin 29.2 pg (28.0-33.3); Mean Platelet Volume 10.6 fL (9.4-12.4); Monocytes # 0.5 K/mcL (0.0-1.3); Monocytes % 3.5 %; Neutrophils # 11.4 K/mcL (1.6-8.9); Platelet Count 338 K/mcL (140-400); Red Blood Count 5.06 M/mcL (3.82-4.97); Red Cell Distribution Width 12.8 % (11.5-14.5); Segmented Neutrophils % 83.7 %; White Blood Count 13.6 K/mcL (4.3-11.1)
[2019-08-26 03:45] LABS: VBG HCO3 20 mEq/L (21-27); VBG PCO2 37 mmHg (41-51); VBG PH 7.34 pH Units (7.32-7.42); VBG PO2 53 mmHg (25-50)
[2019-08-26] MEDS: 0.9 % Sodium Chloride 1,000 ML IVC SCH ×2 (03:49→04:33)
[2019-08-26 04:05] LABS: Alanine Aminotransferase 21 Units/L (7-52); Albumin 4.4 g/dL (3.5-5.7); Albumin/Globulin Ratio 1.4 (1.1-2.2); Alkaline Phosphatase 180 Units/L (34-104); Aspartate Amino Transferase 13 Units/L (13-39); BUN/Creatinine Ratio 26 (6-26); Bilirubin,Total 0.5 mg/dL (0.3-1.0); Blood Urea Nitrogen 30 mg/dL (6-20); Calcium 10.3 mg/dL (8.6-10.3); Carbon Dioxide 18 mEq/L (23-29); Chloride 92 mEq/L (98-107); Globulin 3.1 g/dL (2.4-3.5); Glucose 544 mg/dL (70-105); Magnesium 2.1 mg/dL (1.6-2.6); Osmolality,Calculated 297 (280-300); Phosphorous 2.5 mg/dL (2.7-4.5); Potassium 4.6 mEq/L (3.5-5.1); Sodium 128 mEq/L (136-145); Total Protein 7.5 g/dL (6.4-8.9); eGFR For African Americans > 60 (> 60); eGFR For Non-African Americans 53 (> 60)
[2019-08-26] MEDS ORDERED: *HR* Dextrose 50 % in Water (Syg) 50 ML SYRINGE IVP PRN ×4 (04:09→23:55)
[2019-08-26] MEDS ORDERED: Insulin Human Regular 100 UNIT in 0.9 % Sodium Chloride 100 ML IVC SCH ×2 (04:15→11:00)
[2019-08-26] MEDS ORDERED: Naloxone 0.4 MG/ML INJ IVP PRN ×2 (04:25→23:55)
[2019-08-26] MEDS: 0.9 % Sodium Chloride w KCl 20 MEQ/1,000 ML MLS IVC SCH ×2 (04:32→08:42)
[2019-08-26] MEDS: *HR* Heparin 5,000 UNIT/ML VIAL SQ SCH ×2 (06:09→14:07)
[2019-08-26 10:00] LABS: BUN/Creatinine Ratio 24 (6-26); Blood Urea Nitrogen 21 mg/dL (6-20); Calcium 7.8 mg/dL (8.6-10.3); Carbon Dioxide 16 mEq/L (23-29); Chloride 111 mEq/L (98-107); Glucose 262 mg/dL (70-105); Magnesium 1.6 mg/dL (1.6-2.6); Osmolality,Calculated 294 (280-300); Phosphorous 1.4 mg/dL (2.7-4.5); Potassium 3.7 mEq/L (3.5-5.1); Sodium 136 mEq/L (136-145); eGFR For African Americans > 60 (> 60); eGFR For Non-African Americans > 60 (> 60)
[2019-08-26] MEDS ORDERED: Potassium Phosphate 44 MEQ in 0.9 % Sodium Chloride 250 ML IVPB ONE (10:20)
[2019-08-26 10:40] LABS: Estimated Average Glucose 453 mg/dl
[2019-08-26] MEDS ORDERED: *HR* OxyCODONE/APAP 5/325 TABLET PO PRN ×2 (10:53→23:55)
[2019-08-26] MEDS ORDERED: Insulin Regular, Human 100 UNIT/ML IV PRN (10:53)
[2019-08-26] MEDS: MetroNIDAZOLE 500 MG/100 ML 500 MG/100 ML BAG IVPB SCH ×2 (11:43→20:10)
[2019-08-26] MEDS: Potassium Chloride 20 MEQ in D5% in Lactated Ringers 1,000 ML IVC SCH ×2 (12:45→16:36)
[2019-08-26 16:15] LABS: VBG Ionized Calcium 1.13 mmol/L (1.15-1.35)
[2019-08-26 16:31] LABS: Alanine Aminotransferase 12 Units/L (7-52); Albumin 2.9 g/dL (3.5-5.7); Albumin/Globulin Ratio 1.5 (1.1-2.2); Alkaline Phosphatase 100 Units/L (34-104); Aspartate Amino Transferase 10 Units/L (13-39); BUN/Creatinine Ratio 19 (6-26); Bilirubin,Total 0.3 mg/dL (0.3-1.0); Blood Urea Nitrogen 15 mg/dL (6-20); Calcium 7.3 mg/dL (8.6-10.3); Carbon Dioxide 21 mEq/L (23-29); Chloride 111 mEq/L (98-107); Glucose 198 mg/dL (70-105); Magnesium 1.9 mg/dL (1.6-2.6); Osmolality,Calculated 288 (280-300); Phosphorous 1.3 mg/dL (2.7-4.5); Potassium 3.8 mEq/L (3.5-5.1); Sodium 136 mEq/L (136-145); Total Protein 4.9 g/dL (6.4-8.9); eGFR For African Americans > 60 (> 60); eGFR For Non-African Americans > 60 (> 60)
[2019-08-26] MEDS ORDERED: D5% in Water 1,000 ML IVC PRN ×2 (17:32→23:55)
[2019-08-26] MEDS ORDERED: Dextrose Gel 15 GM/37.5 ML TUBE PO PRN ×4 (17:32→23:55)
[2019-08-26] MEDS ORDERED: Metoclopramide 10 MG/2 ML VIAL IVP ONE (17:38)
[2019-08-26] MEDS ORDERED: Famotidine 20 MG/2 ML VIAL IVP ONE (17:38)
[2019-08-26] MEDS ORDERED: Ringers Solution, Lactated 1,000 ML IVC SCH (17:45)
[2019-08-26] MEDS ORDERED: Insulin LISPRO 300 UNITS/3 ML VIAL SQ SCH (18:00)
[2019-08-26] MEDS ORDERED: Insulin DETEMIR 100 UNIT/ML X5UNITS SQ SCH (18:15)
[2019-08-26] MEDS ORDERED: *HR* Propofol 200 MG/20 ML VIAL IVP ONE (22:06)
[2019-08-26] MEDS ORDERED: *HR* FentaNYL (PF) 100 MCG/2 ML VIAL ONE (22:06)
[2019-08-26] MEDS ORDERED: Lidocaine -MPF 2% 2 ML VIAL ONE (22:08)
[2019-08-26] MEDS ORDERED: Ondansetron 4 MG/2 ML VIAL ONE (22:08)
[2019-08-26] MEDS ORDERED: Dexamethasone 4 MG/ML VIAL ONE (22:08)
[2019-08-27] MEDS: Insulin LISPRO 300 UNITS/3 ML VIAL SQ SCH ×2 (00:11→05:21)
[2019-08-27] MEDS: Ringers Solution, Lactated 1,000 ML IVC SCH ×3 (00:17→06:23)
[2019-08-27 00:20] LABS: Bilirubin,Urine Negative (Negative); Blood,Urine Negative (Negative); Clarity,Urine Clear (Clear); Color,Urine Yellow (Yellow); Glucose,Urine (UA) >=1000 mg/dL (Normal); Ketones,Urine 15 mg/dL (Negative); Leukocyte Esterase,Urine Negative (Negative); Nitrite,Urine Negative (Negative); Protein,Urine 100 mg/dL (Neg-Trace); Specific Gravity,Urine 1.026 (1.010-1.025); Urobilinogen,Urine Normal (Normal)
[2019-08-27 00:22] LABS: Bacteria,Urine None Seen per hpf (None-Few); Hyaline Casts,Urine None Seen per lpf (None-Few); RBC,Urine 0-3 per hpf (0-3); Squamous Epithelial Cell,Urine Many per lpf (None-Few); WBC,Urine 0-3 per hpf (0-3)
[2019-08-27 00:28] LABS: Alanine Aminotransferase 11 Units/L (7-52); Albumin 2.9 g/dL (3.5-5.7); Albumin/Globulin Ratio 1.4 (1.1-2.2); Alkaline Phosphatase 98 Units/L (34-104); Aspartate Amino Transferase 11 Units/L (13-39); BUN/Creatinine Ratio 16 (6-26); Bilirubin,Total 0.3 mg/dL (0.3-1.0); Blood Urea Nitrogen 11 mg/dL (6-20); Calcium 7.2 mg/dL (8.6-10.3); Carbon Dioxide 21 mEq/L (23-29); Chloride 111 mEq/L (98-107); Globulin 2.1 g/dL (2.4-3.5); Glucose 82 mg/dL (70-105); Magnesium 1.7 mg/dL (1.6-2.6); Osmolality,Calculated 282 (280-300); Phosphorous 2.6 mg/dL (2.7-4.5); Potassium 3.9 mEq/L (3.5-5.1); Sodium 137 mEq/L (136-145); eGFR For African Americans > 60 (> 60); eGFR For Non-African Americans > 60 (> 60)
[2019-08-27] MEDS: MetroNIDAZOLE 500 MG/100 ML 500 MG/100 ML BAG IVPB SCH ×2 (04:20→12:13)
[2019-08-27] MEDS ORDERED: *HR* Heparin 5,000 UNIT/ML VIAL SQ SCH ×2 (06:00→14:00)
[2019-08-27 06:06] LABS: Basophils % 0.1 %; Immature Granulocytes % 0.4 % (0-4); Lymphocytes % 9.3 %; Mean Corpuscular HGB Conc 33.5 g/dL (31.6-35.5); Mean Corpuscular Hemoglobin 29.4 pg (28.0-33.3); Mean Corpuscular Volume 87.6 fL (83.0-100.0); Mean Platelet Volume 10.9 fL (9.4-12.4); Monocytes # 0.2 K/mcL (0.0-1.3); Monocytes % 1.8 %; Neutrophils # 9.2 K/mcL (1.6-8.9); Platelet Count 194 K/mcL (140-400); Red Blood Count 3.54 M/mcL (3.82-4.97); Red Cell Distribution Width 13.5 % (11.5-14.5); Segmented Neutrophils % 88.4 %; White Blood Count 10.4 K/mcL (4.3-11.1)
[2019-08-27 06:07] VITALS: BP 99/70
[2019-08-27 06:08] LABS: Hemoglobin 10.4 g/dL (11.5-15.4)
[2019-08-27 06:24] LABS: Alanine Aminotransferase 12 Units/L (7-52); Albumin/Globulin Ratio 1.5 (1.1-2.2); Alkaline Phosphatase 102 Units/L (34-104); Aspartate Amino Transferase 20 Units/L (13-39); BUN/Creatinine Ratio 14 (6-26); Bilirubin,Total 0.2 mg/dL (0.3-1.0); Blood Urea Nitrogen 9 mg/dL (6-20); Calcium 7.2 mg/dL (8.6-10.3); Carbon Dioxide 21 mEq/L (23-29); Chloride 108 mEq/L (98-107); Glucose 97 mg/dL (70-105); Magnesium 2.2 mg/dL (1.6-2.6); Osmolality,Calculated 277 (280-300); Phosphorous 2.9 mg/dL (2.7-4.5); Potassium 4.2 mEq/L (3.5-5.1); Sodium 134 mEq/L (136-145); eGFR For African Americans > 60 (> 60); eGFR For Non-African Americans > 60 (> 60)
[2019-08-27] MEDS ORDERED: Insulin DETEMIR 100 UNIT/ML X5UNITS SQ SCH ×3 (09:00→21:00)
[2019-08-27] MEDS ORDERED: Insulin LISPRO 300 UNITS/3 ML VIAL SQ SCH ×4 (11:30→21:00)
[2019-08-27] MEDS ORDERED: Naloxone 0.4 MG/ML INJ IVP PRN (12:42)
[2019-08-27] MEDS ORDERED: D5% in Water 1,000 ML IVC PRN (12:42)
[2019-08-27] MEDS ORDERED: Dextrose Gel 15 GM/37.5 ML TUBE PO PRN ×2 (12:42)
[2019-08-27] MEDS ORDERED: *HR* Dextrose 50 % in Water (Syg) 50 ML SYRINGE IVP PRN (12:42)
[2019-08-27] MEDS ORDERED: *HR* OxyCODONE/APAP 5/325 TABLET PO PRN (12:42)
[2019-08-27] MEDS ORDERED: MetroNIDAZOLE 500 MG/100 ML 500 MG/100 ML BAG IVPB SCH (20:00)
== END 2019-08-27 14:05 | disposition left against medical advice (07) | DRG 951 ==
LOC: EMEROOARM 03:14 → ICNU 03:14
PROVIDERS: ADMIT Internal Medicine; ATTEND Internal Medicine

== ENCOUNTER 2021-11-17 10:52 | Observation (INO) ==
[2021-11-17] MEDS ORDERED: Ketorolac 30 MG/ML VIAL IVP STA (11:01)
[2021-11-17] MEDS ORDERED: Ondansetron 4 MG/2 ML VIAL IVP ONE ×2 (11:01→14:09)
[2021-11-17 11:16] LABS: Basophils % 0.2 %; Hematocrit 34.3 % (35.3-44.9); Hemoglobin 11.5 g/dL (11.5-15.4); Immature Granulocytes % 0.5 % (0-4); Lymphocytes # 0.6 K/mcL (0.6-4.6); Mean Corpuscular HGB Conc 33.5 g/dL (31.6-35.5); Mean Corpuscular Hemoglobin 29.6 pg (28.0-33.3); Mean Corpuscular Volume 88.4 fL (83.0-100.0); Mean Platelet Volume 11.9 fL (9.4-12.4); Monocytes # 0.3 K/mcL (0.0-1.3); Monocytes % 2.8 %; Platelet Count 208 K/mcL (140-400); Red Blood Count 3.88 M/mcL (3.82-4.97); Red Cell Distribution Width 12.7 % (11.5-14.5); Segmented Neutrophils % 91.5 %; White Blood Count 12.1 K/mcL (4.3-11.1)
[2021-11-17] MEDS: 0.9 % Sodium Chloride 1,000 ML IVC SCH ×2 (11:20→12:19)
[2021-11-17 11:26] LABS: VBG HCO3 17 mEq/L (21-27); VBG PCO2 32 mmHg (41-51); VBG PH 7.34 pH Units (7.32-7.42); VBG PO2 61 mmHg (25-50)
[2021-11-17 11:55] LABS: Alanine Aminotransferase 21 Units/L (7-52); Albumin 4.1 g/dL (3.5-5.7); Albumin/Globulin Ratio 2.1 (1.1-2.2); Alkaline Phosphatase 69 Units/L (34-104); Aspartate Amino Transferase 18 Units/L (13-39); BUN/Creatinine Ratio 21 (6-26); Bilirubin,Total 0.8 mg/dL (0.3-1.0); Blood Urea Nitrogen 32 mg/dL (6-20); Calcium 8.2 mg/dL (8.6-10.3); Carbon Dioxide 17 mEq/L (23-29); Chloride 94 mEq/L (98-107); Glucose 630 mg/dL (70-105); Osmolality,Calculated 306 (280-300); Potassium 4.4 mEq/L (3.5-5.1); Sodium 130 mEq/L (136-145); Total Protein 6.1 g/dL (6.4-8.9); Troponin I < 0.03 ng/mL (< 0.04); eGFR For African Americans 46 (> 60); eGFR For Non-African Americans 38 (> 60)
[2021-11-17] MEDS ORDERED: Insulin Regular, Human 100 UNIT/ML IV ONE (11:57)
[2021-11-17] MEDS ORDERED: Insulin Regular, Human 100 UNIT/ML IV PRN (12:25)
[2021-11-17] MEDS ORDERED: D5% in 0.45% NACL 1,000 ML IVC PRN (12:25)
[2021-11-17] MEDS ORDERED: D5% in 0.45% NACL w KCl 20 MEQ/1,000 ML MLS IVC PRN (12:25)
[2021-11-17] MEDS ORDERED: 0.9 % Sodium Chloride w KCl 20 MEQ/1,000 ML MLS IVC SCH (12:30)
[2021-11-17] MEDS ORDERED: Ondansetron 4 MG/2 ML VIAL IVP PRN (12:36)
[2021-11-17] MEDS: *HR* Heparin 5,000 UNIT/ML VIAL SQ SCH ×2 (14:16→21:03)
[2021-11-17 14:17] LABS: Bacteria,Urine Few per hpf (None-Few); Bilirubin,Urine Negative (Negative); Blood,Urine Large (Negative); Clarity,Urine Clear (Clear); Color,Urine Colorless (Yellow); Glucose,Urine (UA) >=1000 mg/dL (Normal); Ketones,Urine 40 mg/dL (Negative); Leukocyte Esterase,Urine Negative (Negative); Nitrite,Urine Negative (Negative); PH,Urine 5.5 pH Units (5.0-8.0); Protein,Urine 50 mg/dL (Neg-Trace); Specific Gravity,Urine 1.023 (1.010-1.025); Squamous Epithelial Cell,Urine Few per hpf (None-Few); Urobilinogen,Urine Normal (Normal)
[2021-11-17] MEDS: Acetaminophen 325 MG TABLET PO PRN ×2 (14:17→20:10)
[2021-11-17 16:41] LABS: Calcium 6.8 mg/dL (8.6-10.3)
[2021-11-17] MEDS: Pantoprazole 40 MG VIAL IVP SCH (18:07)
[2021-11-17 19:48] LABS: Potassium 3.6 mEq/L (3.5-5.1)
[2021-11-17] MEDS ORDERED: Insulin DETEMIR 100 UNIT/ML X5UNITS SUBQ ONE (20:10)
[2021-11-17 23:12] LABS: Calcium 6.8 mg/dL (8.6-10.3)
[2021-11-18] MEDS: *HR* Dextrose 50 % in Water (Syg) 50 ML SYRINGE IVP PRN ×2 (03:07→11:45)
[2021-11-18 03:29] LABS: Basophils # 0.1 K/mcL (0.0-0.2); Basophils % 0.3 %; Eosinophils % 0.2 %; Hematocrit 33.9 % (35.3-44.9); Hemoglobin 11.1 g/dL (11.5-15.4); Immature Granulocytes % 0.5 % (0-4); Lymphocytes % 21.4 %; Mean Corpuscular HGB Conc 32.7 g/dL (31.6-35.5); Mean Corpuscular Hemoglobin 29.4 pg (28.0-33.3); Mean Corpuscular Volume 89.9 fL (83.0-100.0); Mean Platelet Volume 11.4 fL (9.4-12.4); Monocytes # 1.1 K/mcL (0.0-1.3); Monocytes % 5.8 %; Platelet Count 263 K/mcL (140-400); Red Blood Count 3.77 M/mcL (3.82-4.97); Red Cell Distribution Width 12.9 % (11.5-14.5); Segmented Neutrophils % 71.8 %
[2021-11-18 03:30] LABS: Lymphocytes # 3.9 K/mcL (0.6-4.6); Neutrophils # 13.2 K/mcL (1.6-8.9); White Blood Count 18.4 K/mcL (4.3-11.1)
[2021-11-18 03:34] LABS: Estimated Average Glucose 192 mg/dl; Hemoglobin A1C 8.3 %
[2021-11-18 04:03] LABS: Calcium 7.4 mg/dL (8.6-10.3); Magnesium 1.8 mg/dL (1.6-2.6); Potassium 3.6 mEq/L (3.5-5.1)
[2021-11-18] MEDS: *HR* Heparin 5,000 UNIT/ML VIAL SQ SCH ×2 (06:30→15:51)
[2021-11-18] MEDS: Pantoprazole 40 MG VIAL IVP SCH (06:31)
[2021-11-18] MEDS ORDERED: Dextrose Gel 15 GM/37.5 ML TUBE PO PRN ×2 (07:44)
[2021-11-18] MEDS ORDERED: *HR* Dextrose 50 % in Water (Syg) 50 ML SYRINGE IVP PRN (07:44)
[2021-11-18] MEDS ORDERED: D5% in Water 1,000 ML IVC PRN (07:44)
[2021-11-18] MEDS ORDERED: Sodium Bicarbonate 75 MEQ in 0.45 % Sodium Chloride 1,000 ML IVC SCH (07:48)
[2021-11-18] MEDS ORDERED: Insulin LISPRO 300 UNITS/3 ML VIAL SUBQ SCH (08:00)
[2021-11-18] MEDS: Insulin LISPRO 300 UNITS/3 ML VIAL SUBQ SCH ×3 (08:35→17:00)
[2021-11-18] MEDS ORDERED: Insulin DETEMIR 100 UNIT/ML X5UNITS SUBQ SCH (09:00)
[2021-11-18 09:30] LABS: Potassium 4.5 mEq/L (3.5-5.1)
[2021-11-18 11:47] VITALS: TEMP 98.8
[2021-11-18] MEDS ORDERED: levoFLOXacin 750 MG/150 ML 750 MG/150 ML BAG IVPB SCH (14:00)
[2021-11-18 15:10] VITALS: BP 155/74; PULSE 71; O2SAT 99
[2021-11-18] MEDS ORDERED: MetroNIDAZOLE 500 MG/100 ML 500 MG/100 ML BAG IVPB SCH (16:00)
== END 2021-11-18 18:56 | disposition left against medical advice (07) ==
LOC: EMEROOARM 10:52 → 2NNU 10:52 → SUATTDRO 12:46 → 2NNU 13:49
PROVIDERS: ADMIT Family Medicine; ATTEND Pharmacist